=== PATIENT | male | born 1990 | race Two or more races ===

== ENCOUNTER 2022-01-19 16:29 | Emergency (ER) | payer MEDICAID, OTHER ==
[~2022-01-19] VITALS: Ht 182.9 cm; Wt 81.6 kg
[2022-01-19] MEDS ORDERED: PROCHLORPERAZINE EDISYLATE 5 MG/ML 2ML VIAL IV ONE (16:45)
[2022-01-19] MEDS ORDERED: SODIUM CHLORIDE 0.9% 1,000 ML IV ONE (16:45)
[2022-01-19] MEDS ORDERED: ONDA-144 PO (16:56)
[2022-01-19] MEDS ORDERED: PANT40TA2 PO (17:05)
[2022-01-19 17:36] LABS: Basophils # (auto) 0 10 ^3/uL (0-0.2); Basophils % (auto) 0.3 % (0.0-2.0); Eosinophils # (auto) 0 10 ^3/uL (0-0.8); Eosinophils % (auto) 0.3 % (0.0-7.0); Hematocrit 48.2 % (41.0-53.0); Hemoglobin 16.7 g/dL (13.5-17.5); Lymphocytes # (auto) 1.8 10 ^3/uL (0.4-5.4); Lymphocytes % (auto) 12.8 % (10.0-50.0); Mean Corpuscular Hemoglobin 30.1 pg (28.0-32.0); Mean Corpuscular Hgb Conc. 34.7 g/dL (32.0-36.0); Mean Corpuscular Volume 86.8 fL (80.0-100.0); Monocytes # (auto) 0.9 10 ^3/uL (0-1.3); Monocytes % (auto) 6.1 % (0.0-12.0); Neutrophils # (auto) 11.3 10 ^3/uL (1.6-8.6); Neutrophils % (auto) 80.5 % (37.0-80.0); Nucleated Red Blood Cells % 0.3 %; Red Blood Cells 5.55 10^6/uL (4.5-5.90); Red Cell Distribution Width 12.7 % (11.8-14.3)
[2022-01-19 17:57] LABS: Potassium 3.1 mmol/L (3.5-5.1)
[2022-01-19 18:00] LABS: Albumin 4.6 g/dL (3.4-5.0); BUN/Creatinine Ratio 11.2
[2022-01-19] MEDS ORDERED: METR500T PO (18:08)
[2022-01-19 18:13] LABS: Bilirubin, Total 1.1 mg/dL (0.2-1.0); Calcium 9.8 mg/dL (8.5-10.1); Total Protein 8.6 g/dL (6.4-8.2)
[2022-01-19] MEDS ORDERED: cefTRIAXone 1GM/50ML D5W 50 ML IV ONE (18:15)
[2022-01-19] MEDS ORDERED: metroNIDAZOLE 500MG/100ML 100 ML IV ONE (18:15)
[2022-01-19] MEDS ORDERED: POTASSIUM EFFERVESENT TAB 25 MEQ PO ONE (19:15)
[2022-01-19 19:25] VITALS: BP 150/92
[2022-01-20] MEDS ORDERED: SUCR1SUS10 PO (21:09)
== END 2022-01-19 19:34 | disposition home or self-care (01) ==
LOC: ER 16:29
DX: K29.70 Gastritis, unspecified, without bleeding (principal); F12.99 Cannabis use, unspecified with unspecified cannabis-induced disorder; Z79.899 Other long term (current) drug therapy
CPT/HCPCS: 36415; 80053; 85025; 96361; 96365; 96375; 99284; J0696; J0780; J7030

== ENCOUNTER 2022-01-20 17:51 | Emergency (ER) | payer MEDICAID ==
[~2022-01-20] VITALS: Ht 185.4 cm; Wt 81.6 kg
[~2022-01-20 17:51] MED LIST: METR500T PO; ONDA-144 PO; PANT40TA2 PO
[2022-01-20] MEDS ORDERED: SUCRALFATE 1 GM/10 ML ORAL SUSP PO ONE (18:30)
[2022-01-20] MEDS ORDERED: LIDOCAINE VISCOUS 2% 15ML UD PO ONE (18:30)
[2022-01-20 18:35] LABS: Basophils # (auto) 0 10 ^3/uL (0-0.2); Eosinophils # (auto) 0 10 ^3/uL (0-0.8); Hemoglobin 16.8 g/dL (13.5-17.5); Monocytes # (auto) 0.5 10 ^3/uL (0-1.3); Monocytes % (auto) 6.7 % (0.0-12.0)
[2022-01-20 18:48] LABS: Albumin 4.6 g/dL (3.4-5.0); Calcium 9.6 mg/dL (8.5-10.1); Potassium 3.3 mmol/L (3.5-5.1)
[2022-01-20 18:50] LABS: BUN/Creatinine Ratio 9.3
[2022-01-20 18:53] LABS: Basophils % (auto) 0.4 % (0.0-2.0); Eosinophils % (auto) 0.1 % (0.0-7.0); Hematocrit 46.8 % (41.0-53.0); Lymphocytes % (auto) 13.1 % (10.0-50.0); Mean Corpuscular Hemoglobin 30.9 pg (28.0-32.0); Mean Corpuscular Hgb Conc. 35.8 g/dL (32.0-36.0); Mean Corpuscular Volume 86.4 fL (80.0-100.0); Neutrophils # (auto) 5.9 10 ^3/uL (1.6-8.6); Neutrophils % (auto) 79.7 % (37.0-80.0); Nucleated Red Blood Cells % 2.3 %; Red Blood Cells 5.41 10^6/uL (4.5-5.90); Red Cell Distribution Width 12.4 % (11.8-14.3); White Blood Cell 7.4 10^3/uL (4.4-10.8)
[2022-01-20 18:54] LABS: Bilirubin, Total 1.7 mg/dL (0.2-1.0); Total Protein 8.7 g/dL (6.4-8.2)
[2022-01-20] MEDS ORDERED: SUCR1SUS10 PO (21:09)
[2022-01-20 21:19] VITALS: BP 145/87
== END 2022-01-20 22:08 | disposition home or self-care (01) ==
LOC: ER 17:51
DX: R45.89 Other symptoms and signs involving emotional state (principal); R07.89 Other chest pain
CPT/HCPCS: 36415; 80053; 84484; 85025; 93005